=== PATIENT | male | born 1940 | race Asian ===

== ENCOUNTER 2017-05-05 13:52 | Emergency (ER) | payer OTHER ==
[~2017-05-05] VITALS: Ht 157.5 cm; Wt 78.0 kg
[~2017-05-05 13:52] MED LIST: AMLO1POW3 PO; ASPI325T4 PO; DOXA8TAB65 PO; GLYB1.252 PO; GLYB2.5T PO; LOSA100T47 PO; LOVA20TA PO; METO100T PO; OMEG-135
[2017-05-05 13:56] VITALS: Ht 157.5 cm; Wt 78.0 kg
--- NOTE | 2017-05-05 15:08 | ERA ---
ER Documentation Chief Complaint Date/Time DATE: 05/05/17 TIME: 15:05 Chief Complaint ASYMPTOMATIC, HERE FOR HTN ON MEDS HPI This is a 76-year-old male who presents with a chief complaint of hypertension. Patient took blood pressure at home and was in the 180s systolic and was worried so he presented to the emergency department. Patient denies any symptoms including dizziness, headache, shortness of breath, chest pain, abdominal pain, nausea, vomiting, change in vision, change in hearing, meningismus or fever/chills. Patient has no other complaints at this time. The nursing notes have been reviewed and are consistent with the history given. Patient's vaccination status is up-to-date. ROS All systems reviewed and are negative except as per history of present illness. Medications Home Meds Reported Medications Amlodipine Besylate (AMLODIPINE BESYLATE) 1 Gm Powder, 5 MG PO BID 03/21/13 Glyburide* (Diabeta*) 2.5 Mg Tablet, 2.5 MG PO 03/21/13 Glyburide* (Glyburide*) 1.25 Mg Tablet, 5 MG PO BID 03/21/13 Metoprolol (Lopressor) 100 Mg Tablet, 100 MG PO 100 MG IN AM AND 50 MG PM 09/25/12 Lovastatin* (Lovastatin*) 20 Mg Tablet, 20 MG PO DAILY 09/25/12 Losartan Potassium* (Cozaar*) 100 Mg Tablet, 100 MG PO DAILY 09/25/12 Doxazosin Mesylate* (Doxazosin Mesylate*) 8 Mg Tablet, 8 MG PO DAILY 09/25/12 Aspirin* (Aspirin*) 325 Mg Tablet, 325 MG PO DAILY 09/25/12 Fish Oil* (Fish Oil*) 1,000 Mg Cap 04/26/11 Allergies Allergies: Coded Allergies: No Known Allergies (Verified Allergy, Mild, 03/21/13) PMhx/Soc History of Surgery: Yes (LEFT CATARACT SURGERY) Anesthesia Reaction: No Hx Neurological Disorder: No Hx Respiratory Disorders: No Hx Cardiac Disorders: Yes (HTN, HIGH CHOLESTEROL) Hx Psychiatric Problems: No Hx Miscellaneous Medical Probl: No Hx Alcohol Use: No Hx Substance Use: No Hx Tobacco Use: No Physical Exam Vitals Vital Signs Date Time Temp Pulse Resp B/P Pulse Ox O2 Delivery O2 Flow Rate FiO2 05/05/17 13:56 98.1 84 162/84 99 Physical Exam Const: [] Head: Atraumatic Eyes: Normal Conjunctiva ENT: Normal External Ears, Nose and Mouth. Neck: Full range of motion..~ No meningismus. Resp: Clear to auscultation bilaterally Cardio: Regular rate and rhythm, no murmurs Abd: Soft, non tender, non distended. Normal bowel sounds Skin: No petechiae or rashes Back: No midline or flank tenderness Ext: No cyanosis, or edema Neur: Awake and alert Psych: Normal Mood and Affect Procedures/MDM This is a 76-year-old male presenting with signs and symptoms consistent with asymptomatic hypertension. At this time I very little suspicion for hypertensive urgency/emergency, bacterial or viral involvement or other causation's for end-organ damage. Since the patient is asymptomatic, he will be discharged home with discharge instructions and return precautions. I have spoken in length with the patient about the necessity of returning to the emergency department if symptoms change, worsen or persist. I have also spoke extensively with the patient about the necessity of following up with [employer] in the next 1-3 days. Patient's vitals are stable and his current condition is appropriate for discharge. Departure Diagnosis: Primary Impression: Asymptomatic hypertension Condition: Stable Patient Instructions: High Blood Pressure (Hypertension) Referrals: ALAINA MENDES MD Additional Instructions: Follow up with your [employer] [employer] within the next 1-3 days for a more thorough evaluation and a possible alteration of medications. Return the the emergency department immediately if symptoms worsen or change. If you have any questions regarding medications, ask your pharmacist or us before you leave. If any adverse reactions occur while taking your medications, discontinue the treatment and return to the emergency department immediately. Take your medications as directed, and complete the entire course of treatment. JOSE ISAAC PA-C May 05, 2017 15:08
== END 2017-05-05 14:25 | disposition home or self-care (01) ==
LOC: E/R 13:52
DX: I10 Essential (primary) hypertension (principal); Z79.82 Long term (current) use of aspirin; Z79.84 Long term (current) use of oral hypoglycemic drugs
CPT/HCPCS: 99282

== ENCOUNTER 2017-11-17 02:36 | Inpatient (IN) | END 2017-12-03 19:33 | disposition home health service (06) | DRG 233 ==